=== PATIENT | female | born 1955 | race Caucasian/White ===

== ENCOUNTER 2018-09-09 01:57 | Emergency (ER) | payer OTHER ==
[~2018-09-09] VITALS: Ht 154.9 cm; Wt 54.5 kg
[2018-09-09 02:01] VITALS: Ht 154.9 cm; Wt 54.5 kg
[2018-09-09 04:45] VITALS: BP 133/77; PULSE 95; RESP 18
--- NOTE | 2018-09-09 05:09 | ERD ---
ER Documentation Chief Complaint Chief Complaint BIBA RA90,chest pressure pain radiating to left arm per pt verbatim HPI This is a 8-year-old female brought in by rescue with complaints of cough and chest pressure. Patient refused any treatment on route by paramedics. Upon arrival she says she does not have any chest pain but was diagnosed with acute bronchitis 2 weeks ago. Denies fevers chills nausea or vomiting. Denies any other current complaints. Currently denies any chest pain. She did allow us to order a EKG and a chest x-ray. ROS All systems reviewed and are negative except as per history of present illness. Medications Home Meds Active Scripts Albuterol Sulfate* (Ventolin HFA*) 18 Gm Hfa.aer.ad, 2 PUFF INHALATION Q4H, #1 INHALER Prov:ZACKSHANTE GUAN 09/09/18 Allergies Allergies: Coded Allergies: acetaminophen (Verified Allergy, Unknown, 09/09/18) aspirin (Verified Allergy, Unknown, 09/09/18) codeine (Verified Allergy, Unknown, 09/09/18) hydrocodone (Verified Allergy, Unknown, 09/09/18) nitroglycerin (Verified Allergy, Unknown, 09/09/18) PMhx/Soc Hx Respiratory Disorders: Yes (Bronchitis) Hx Psychiatric Problems: Yes (anxiety) Hx Alcohol Use: Yes Hx Substance Use: No Hx Tobacco Use: Yes Smoking Status: Current every day smoker Physical Exam Vitals Vital Signs Date Temp Pulse Resp B/P (MAP) Pulse Ox O2 O2 Flow FiO2 Time Delivery Rate 09/09/18 98.5 95 18 133/77 95 Room Air 04:45 (95) 09/09/18 98.5 103 18 154/83 95 02:01 (106) Physical Exam Const: No acute distress Head: Atraumatic Eyes: Normal Conjunctiva ENT: Normal External Ears, Nose and Mouth. Neck: Full range of motion. No meningismus. Resp: Clear to auscultation bilaterally Cardio: Regular rate and rhythm, no murmurs Abd: Soft, non tender, non distended. Normal bowel sounds Skin: No petechiae or rashes Back: No midline or flank tenderness Ext: No cyanosis, or edema Neur: Awake and alert Psych: Normal Mood and Affect Procedures/MDM EKG: Rate/Rhythm: [Normal Sinus Rhythm] QRS, ST, T-waves: [No changes consistent w/ acute ischemia] Impression: [No evidence of ischemia or arrhythmia] Chest X-ray 1V Interpreted by me: Soft Tissue: No acute abnormalities Bones: No acute abnormalities Mediastinum/Cardiac Silhouette/Lungs: [No acute abnormalities] Patient's thoracic symptoms have stabilized while in the department and are stable for outpatient follow up. Exam and work up not consistent w/ ischemia, arrhythmia, PE or dissection. Departure Diagnosis: Primary Impression: Shortness of breath Condition: Stable Patient Instructions: Acute Bronchitis SHANTE CUNHA Sep 09, 2018 05:09
== END 2018-09-09 04:45 | disposition home or self-care (01) ==
LOC: MERGE 01:57 → E/R 01:57
DX: R06.02 Shortness of breath (principal); F17.210 Nicotine dependence, cigarettes, uncomplicated
CPT/HCPCS: 71045; 93005; Z7502